=== PATIENT | female | born 1955 | race Caucasian/White ===

== ENCOUNTER → 2016-12-26 | Outpatient (CLI) | payer MEDICARE | LOC: KOH-I 10:42 | DX: M25.511 Pain in right shoulder (principal); M25.411 Effusion, right shoulder | CPT/HCPCS: 73221 ==

== ENCOUNTER → 2020-12-25 | Outpatient (CLI) | payer MEDICARE | LOC: KOH-I 11:38 | DX: M25.561 Pain in right knee (principal); M25.562 Pain in left knee; G89.4 Chronic pain syndrome; M17.0 Bilateral primary osteoarthritis of knee | CPT/HCPCS: 73562 ==

== ENCOUNTER → 2021-05-10 | Outpatient (CLI) | payer MEDICARE | LOC: KOH-I 08:00 | DX: R10.11 Right upper quadrant pain (principal); R10.84 Generalized abdominal pain | CPT/HCPCS: 76705 ==

== ENCOUNTER → 2021-05-14 | Outpatient (CLI) | payer MEDICARE | LOC: NM 07:41 | DX: R10.11 Right upper quadrant pain (principal); R10.84 Generalized abdominal pain | CPT/HCPCS: 78227; A9537 ==

== ENCOUNTER → 2021-07-25 | Outpatient (CLI) | payer MEDICARE | LOC: KOH-I 09:47 | DX: J01.81 Other acute recurrent sinusitis (principal) | CPT/HCPCS: 70486 ==